=== PATIENT | female | born 1960 | race Caucasian/White ===

== ENCOUNTER 2018-08-16 13:01 | Emergency (ER) | payer OTHER ==
[~2018-08-16] VITALS: Ht 162.6 cm; Wt 58.1 kg
--- NOTE | 2018-08-16 13:45 | NUR ---
patient presented to the ER c/o black mold poisoning 3 weeks ago, woke up this morning with a shaky hands. On room air, breathing evenly and unlabored. kept comfortable, will continue to monitor accordingly. Waiting for MD for eval.
--- NOTE | 2018-08-16 16:32 | NUR ---
Patient discharged to home in stable condition. Written and verbal after care instructions given. Patient verbalizes understanding of instruction.
[2018-08-16 16:34] VITALS: BP 118/72
== END 2018-08-16 16:36 | disposition home or self-care (01) ==
LOC: ER 13:01
DX: Z77.120 Contact with and (suspected) exposure to mold (toxic) (principal)
CPT/HCPCS: 71045-TC